=== PATIENT | female | born 1975 | race African-American/Black ===

== ENCOUNTER 2016-04-30 17:33 | Emergency (ER) | payer SELFPAY ==
[~2016-04-30] VITALS: Ht 162.6 cm; Wt 78.0 kg
[2016-04-30 17:34] VITALS: BP 131/71; PULSE 77; RESP 14; TEMP 98.2; O2SAT 98
[2016-04-30] MEDS ORDERED: VENTAER INH (20:03)
[2016-04-30] MEDS ORDERED: BENZ100 PO (20:04)
[2016-04-30] MEDS ORDERED: PRED20 PO (20:04)
[2016-04-30] MEDS ORDERED: AUGM875T PO (20:04)
--- NOTE | 2016-04-30 20:07 | PD ---
HPI Chief Complaint: Cold / Flu Symptoms Time Seen by Provider: 20:00 Travel History International Travel<30 days: No Contact w/Intl Traveler<30days: No Traveled to known affect area: No History of Present Illness HPI 40-year-old female with history of asthma presents for evaluation of cough, congestion, wheezing. Symptoms started 2 weeks ago. She also has ear pressure. Her family all have similar symptoms. She has been using over-the- counter cough and cold medications but symptoms persist. No fevers. No recent travel. No rash. No other complaints. PFSH Past Medical History Hx Anticoagulant Therapy: No Asthma: Yes Cardiovascular Problems: No Chemotherapy: No Cerebrovascular Accident: No Diabetes: No Diminished Hearing: No Respiratory: Yes (ASTHMA) ?: Not Menopausal: No : 6 Para: 6 Tubal Ligation: Yes Past Surgical History Section: Yes (X1) Gynecologic Surgery: Yes (C/SECTION X 1) Hysterectomy: No Social History Alcohol Use: No Tobacco Use: No (Denies) Substance Use: No Allergies-Medications (Allergen,Severity, Reaction): Coded Allergies: No Known Allergies (Verified , 04/30/16) Reported Meds & Prescriptions Reported Meds & Active Scripts Active Reported Ventolin Hfa 18 GM Inh (Albuterol Sulfate) 90 Mcg/Act Aer 2 Puff INH Q4-6H PRN Review of Systems Except as stated in HPI: all other systems reviewed are Neg Physical Exam Narrative GENERAL: Well-developed well-nourished female in no acute distress SKIN: Warm and dry. HEAD: Atraumatic. Normocephalic. EYES: Pupils equal and round. No scleral icterus. No injection or drainage. ENT: No nasal bleeding or discharge. Mucous membranes pink and moist. Some tenderness to palpation of the maxillary sinuses. Tympanic membranes appear normal. NECK: Trachea midline. No JVD. CARDIOVASCULAR: Regular rate and rhythm. No murmur appreciated. RESPIRATORY: No accessory muscle use. Mild wheezing. Data Data Last Documented VS Vital Signs Date Time Temp Pulse Resp B/P Pulse Ox O2 Delivery O2 Flow Rate FiO2 04/30/16 17:34 98.2 77 14 131/71 98 MDM Medical Decision Making Medical Screen Exam Complete: Yes Emergency Medical Condition: Yes Medical Record Reviewed: Yes Differential Diagnosis Sinusitis, bronchitis, asthma exacerbation, pneumonia, influenza, rhinitis, otitis media Narrative Course Examination is consistent with sinusitis and asthma. The patient is being discharged with Augmentin, Tessalon and short course of prednisone. Diagnosis Primary Impression: Sinusitis Qualified Code: J01.90 - Acute sinusitis, recurrence not specified, unspecified location Additional Impression: Asthma Qualified Code: J45.909 - Uncomplicated asthma, unspecified asthma severity Additional Instructions: Medication as prescribed. Avoid tobacco products. Continue using albuterol inhaler. Return for any emergent medical conditions. Med/Other Pt SpecificInfo: Prescription(s) given Scripts Benzonatate (Tessalon Perles)100 Mg [id number] Mg PO TID PRN (COUGH) #30 CAP Ref 0 Prov:Celina Rosario DO 04/30/16 Prednisone 20 Mg Tab20 Mg PO BID 5 Days Ref 0 Prov:Celina Rosario DO 04/30/16 Amoxicillin-Clavulanate (Augmentin)875-125 mg [id number] Mg PO BID 10 Days Ref 0 not for use in CrCl <30 ml/min. Prov:Celina Rosario DO 04/30/16 Disposition: 01 DISCHARGE HOME Condition: Stable [place] Apr 30, 2016 20:07
[2016-04-30] MEDS ORDERED: BENZONATATE 100 MG CAP PO ONE (21:00)
[2016-04-30] MEDS ORDERED: predniSONE 20 MG TAB PO ONE (21:00)
[2016-04-30] MEDS ORDERED: AMOXICILLIN/CLAVULANATE K 875 MG TAB PO ONE (21:00)
== END 2016-04-30 21:56 | disposition home or self-care (01) ==
LOC: NEPB 17:33
DX: J32.9 Chronic sinusitis, unspecified (principal); J45.909 Unspecified asthma, uncomplicated
CPT/HCPCS: 99282; J7512

== ENCOUNTER 2016-05-09 18:20 | Emergency (ER) | payer SELFPAY ==
[~2016-05-09] VITALS: Ht 162.6 cm; Wt 75.0 kg
[~2016-05-09 18:20] MED LIST: AUGM875T PO; BENZ100 PO; PRED20 PO; VENTAER INH
[2016-05-09 18:32] VITALS: BP 132/78; PULSE 88; RESP 14; TEMP 98.2; O2SAT 98
== END 2016-05-09 19:21 | disposition left against medical advice (07) ==
LOC: NED 18:20
DX: R51 Headache (principal); Z53.21 Procedure and treatment not carried out due to patient leaving prior to being seen by health care provider
CPT/HCPCS: 99281

== ENCOUNTER 2016-10-30 09:09 | Emergency (ER) | payer OTHER ==
[2016-10-30 09:11] VITALS: BP 155/89; PULSE 70; RESP 13; TEMP 98.7; O2SAT 99
--- NOTE | 2016-10-30 09:26 | PD ---
HPI Chief Complaint: Oral / Dental Pain or Problem Time Seen by Provider: 09:16 Travel History International Travel<30 days: No Contact w/Intl Traveler<30days: No Traveled to known affect area: No History of Present Illness HPI Patient comes in complaining of right-sided dental pain and possible abscesses began 2 days ago both upper and lower. Patient describes pain is achy and pressure-like in nature. Patient has been taking Tylenol with minimal relief. Pain is worse with eating or drinking anything. Denies any radiation of the pain. Denies any fevers, , difficulty swallowing, chest pain, shortness breath, or headaches. Patient states she is not seen a dentist in a long time. PFSH Past Medical History Hx Anticoagulant Therapy: No Asthma: Yes Cardiovascular Problems: No Chemotherapy: No Cerebrovascular Accident: No Diabetes: No Diminished Hearing: No Respiratory: Yes (ASTHMA) Menopausal: No : 6 Para: 6 Tubal Ligation: Yes Past Surgical History Section: Yes (X1) Gynecologic Surgery: Yes (C/SECTION X 1) Hysterectomy: No Social History Alcohol Use: No Tobacco Use: Yes Substance Use: No Allergies-Medications (Allergen,Severity, Reaction): Coded Allergies: No Known Allergies (Verified , 04/30/16) Reported Meds & Prescriptions Reported Meds & Active Scripts Active Naprosyn (Naproxen) 500 Mg Tab 500 Mg PO Q12HR PRN Clindamycin (Clindamycin HCl) 150 Mg Cap 2 Cap PO Q6H 10 Days Penicillin V Potassium 500 Mg Tab 500 Mg PO Q8H 10 Days Tessalon Perles (Benzonatate) 100 Mg Cap 200 Mg PO TID PRN Prednisone 20 Mg Tab 20 Mg PO BID 5 Days Augmentin (Amoxicillin-Clavulanate) 875-125 mg Tab 875 Mg PO BID 10 Days not for use in CrCl <30 ml/min. Reported Ventolin Hfa 18 GM Inh (Albuterol Sulfate) 90 Mcg/Act Aer 2 Puff INH Q4-6H PRN Review of Systems Except as stated in HPI: all other systems reviewed are Neg Physical Exam Narrative GENERAL: Well-developed, well nourished, in no acute distress, and non-ill appearing. SKIN: Focused skin assessment warm and dry. HEAD: Atraumatic. Normocephalic. EYES: Pupils equal and round. EOMI. No scleral icterus. No injection or drainage. ENT: No nasal bleeding or discharge. Mucous membranes pink and moist. Poor dentition with no visible or palpable abscess. Floor the mouth, submandibular, and submental are all soft palpation. Patient is swallowing saliva. NECK: Trachea midline. No cervical lymphadenopathy. Supple. No nuclear rigidity. RESPIRATORY: No accessory muscle use. No respiratory distress. MUSCULOSKELETAL: No obvious deformities. No clubbing. No cyanosis. No edema. Full range of motion. NEUROLOGICAL: Awake and alert. No obvious cranial nerve deficits. Motor grossly within normal limits. Normal speech. PSYCHIATRIC: Appropriate mood and affect; insight and judgment normal. Data Data Last Documented VS Vital Signs Date Time Temp Pulse Resp B/P (MAP) Pulse Ox O2 Delivery O2 Flow Rate FiO2 10/30/16 09:33 10/30/16 09:11 98.7 70 13 99 MDM Medical Decision Making Medical Screen Exam Complete: Yes Emergency Medical Condition: Yes Differential Diagnosis Dental abscess, dental infection, dentalgia, other Narrative Course Patient requesting free antibiotics states she does not have money to pay for different antibiotics. Explained to the patient that the free antibiotics do not always work on dental infections. Patient verbalizes understanding of this , but is wanting to try them first anyway. I explained to the patient will give her prescription for the free along with prescription for the antibiotic that typically works better with dental infections in case they free and does not work. Patient is agreeable to this. The patient presented with dental pain. There is no fever. There is no significant facial swelling or evidence of cellulitis. There is poor dentition but no evidence of drainable abscess at this time. There is no evidence of significant deep or invading abscess at this time. The patient will be placed on antibiotics and pain medication. The patient was instructed to follow up with a dentist. The patient was given the dental referral sheet. Warnings were discussed with the patient regarding worsening of infection. The patient is to return if pain worsens, develops progressive swelling or facial redness or fever. The patient agrees with plan. Patient in no obvious distress upon re-evaluation. Patient was asked if they wanted to speak to my attending, which the patient did not wish to do at this time. Any questions/concerns in reference to patient diagnosis/condition discussed and clarified prior to patient's discharge. Reinforced sheer importance of close follow up with patient's primary physician or primary care clinic and dentist. Instructed patient to return to ED immediately, if symptoms return/worsen. Patient showed understanding of above instructions. Further instructions and recommendations were detailed in discharge paperwork. Patient ambulated without difficulty out of ED at discharge. Diagnosis Primary Impression: Infected dental caries Patient Instructions: Dental Abscess (GEN), Dental Caries (DC), General Instructions Additional Instructions: Follow-up with your primary care physician and dentist as soon as possible. Rinse mouth with warm salt water gargles. Take all medication as prescribed. Pen-Vee K is free at [facility]. If no improvement within 48 hours please obtain the clindamycin prescription and stopped taking the Pen-Vee K. Return to the emergency department if symptoms get worse. Med/Other Pt SpecificInfo: Prescription(s) given Scripts Naproxen (Naprosyn) 500 Mg Tab 500 MG PO Q12HR Y for PAIN SCALE 1 TO 10, #14 TAB 0 Refills Prov: Felisha Contreras MD 10/30/16 Clindamycin (Clindamycin) 150 Mg Cap 2 CAP PO Q6H for Infection for 10 Days, CAP 0 Refills Prov: Felisha Contreras MD 10/30/16 Penicillin V Potassium (Penicillin V Potassium) 500 Mg Tab 500 MG PO Q8H for Infection for 10 Days, #30 TAB 0 Refills Prov: Felisha Contreras MD 10/30/16 Disposition: 01 DISCHARGE HOME Condition: Stable Manny Murry Oct 30, 2016 09:26
[2016-10-30] MEDS ORDERED: CLIN1CAP5 PO (09:27)
[2016-10-30] MEDS ORDERED: PENI500T PO (09:27)
[2016-10-30] MEDS ORDERED: NAPR500 PO (09:27)
== END 2016-10-30 09:30 | disposition home or self-care (01) ==
LOC: NEPK 09:09
DX: K02.9 Dental caries, unspecified (principal); J45.909 Unspecified asthma, uncomplicated; Z72.0 Tobacco use
CPT/HCPCS: 99284

== ENCOUNTER 2016-12-01 18:32 | Emergency (ER) | payer OTHER ==
[~2016-12-01] VITALS: Ht 162.6 cm; Wt 79.5 kg
[~2016-12-01 18:32] MED LIST changes: +CLIN1CAP5 PO; +NAPR500 PO; +PENI500T PO
[2016-12-01 18:34] VITALS: BP 134/75; PULSE 74; RESP 15; TEMP 98.5; O2SAT 98
== END 2016-12-01 20:54 | disposition left against medical advice (07) ==
LOC: NED 18:32
DX: R10.9 Unspecified abdominal pain (principal); Z53.21 Procedure and treatment not carried out due to patient leaving prior to being seen by health care provider
CPT/HCPCS: 99281

== ENCOUNTER 2017-03-29 11:52 | Emergency (ER) | payer OTHER ==
[~2017-03-29 11:52] MED LIST changes: +CLIN150C14 PO; -CLIN1CAP5 PO
[2017-03-29 11:53] VITALS: BP 142/80; PULSE 93; RESP 14; TEMP 98.9; O2SAT 99
[2017-03-29] MEDS ORDERED: TRAM50TA PO (12:50)
[2017-03-29] MEDS ORDERED: AUGM875T3 PO (12:50)
--- NOTE | 2017-03-29 13:12 | PD ---
HPI Chief Complaint: Facial Pain or Swelling Time Seen by Provider: 12:25 Travel History International Travel<30 days: No Contact w/Intl Traveler<30days: No Traveled to known affect area: No History of Present Illness HPI The patient was seen and examined in the presence of the nurse. This patient complains of facial swelling and dental pain. Duration 3 days. Severity is moderate. No alleviating factors. Denies fever PFSH Past Medical History Hx Anticoagulant Therapy: No Asthma: Yes Cardiovascular Problems: No Chemotherapy: No Cerebrovascular Accident: No Diabetes: No Diminished Hearing: No Respiratory: Yes (ASTHMA) Immunizations Current: Yes Influenza Vaccination: No ?: Not LMP: 3 WEEKS AGO Menopausal: No : 6 Para: 6 Tubal Ligation: Yes Past Surgical History Section: Yes (X1) Gynecologic Surgery: Yes (C/SECTION X 1) Hysterectomy: No Social History Alcohol Use: No Tobacco Use: Yes Substance Use: No Allergies-Medications (Allergen,Severity, Reaction): Coded Allergies: No Known Allergies (Verified Adverse Reaction, Unknown, 03/29/17) Reported Meds & Prescriptions Reported Meds & Active Scripts Active Tramadol (Tramadol HCl) 50 Mg Tab 50 Mg PO Q6H PRN Augmentin (Amoxicillin-Clavulanate) 875-125 Mg Tab 1 Tab PO BID Reported Ventolin Hfa 18 GM Inh (Albuterol Sulfate) 90 Mcg/Act Aer 2 Puff INH Q4-6H PRN Review of Systems General / Constitutional: No: Fever HENT: No: Rhinitis Cardiovascular: No: Chest Pain or Discomfort Respiratory: No: Cough Gastrointestinal: No: Vomiting Physical Exam Narrative NECK: Symmetrical appearance, midline trachea. No mass or crepitus. Thyroid without enlargement, tenderness, or mass. SKIN: Focused skin assessment reveals no rash or ulcers. Skin is warm and dry. Palpation shows no induration or nodules. Oral cavity: Tooth #6 partially rotted out. It's very tender. The surrounding gingiva looks pink and healthy. No obvious abscess visible Face: There is some tenderness and swelling in the right cheek and upper lip area but no abscess or fluctuance or drainage. Data Data Last Documented VS Vital Signs Date Time Temp Pulse Resp B/P (MAP) Pulse Ox O2 Delivery O2 Flow Rate FiO2 03/29/17 11:53 98.9 93 14 142/80 (100) 99 MDM Medical Decision Making Medical Screen Exam Complete: Yes Emergency Medical Condition: Yes Medical Record Reviewed: Yes Differential Diagnosis Dental abscess, gingivitis, facial infection Narrative Course I have reviewed the patient's electronic medical record. This patient has dental infection with some facial swelling. I don't see anything to drain or incise Needs to follow up with dentist. I prescribed a course of Augmentin and some tramadol Gave her dose of each here Diagnosis Primary Impression: Dental infection Additional Impression: Facial swelling Additional Instructions: The patient was advised to follow up with their dentist . The patient was warned about potential sedation for the medications they will receive on prescription. Med/Other Pt SpecificInfo: Prescription(s) given Scripts Tramadol (Tramadol) 50 Mg Tab 50 MG PO Q6H Y for PAIN, #20 TAB 0 Refills Prov: Sonido Moreno MD 03/29/17 Amoxicillin-Clavulanate (Augmentin) 875-125 Mg Tab 1 TAB PO BID for Infection, #14 TAB 0 Refills Prov: Sonido Moreno MD 03/29/17 Disposition: 01 DISCHARGE HOME Condition: Stable Sonido Moreno MD Mar 29, 2017 13:12
[2017-03-29] MEDS ORDERED: ACETAMINOPHEN/CODEINE 300 MG/30 MG TAB PO ONE (13:45)
[2017-03-29] MEDS ORDERED: AMOXICILLIN/CLAVULANATE K 875 MG TAB PO ONE (13:45)
[2017-03-29] MEDS ORDERED: TYLETAB34 PO (13:54)
== END 2017-03-29 14:01 | disposition home or self-care (01) ==
LOC: NEPD 11:52
DX: K04.7 Periapical abscess without sinus (principal); R22.0 Localized swelling, mass and lump, head; J45.909 Unspecified asthma, uncomplicated; Z72.0 Tobacco use
CPT/HCPCS: 99283

== ENCOUNTER 2017-04-07 09:37 | Emergency (ER) | payer OTHER ==
[~2017-04-07] VITALS: Ht 162.6 cm; Wt 84.5 kg
[~2017-04-07 09:37] MED LIST changes: -AUGM875T PO; +AUGM875T3 PO; -BENZ100 PO; -CLIN150C14 PO; -NAPR500 PO; -PENI500T PO; -PRED20 PO; +TRAM50TA PO; +TYLETAB34 PO
[2017-04-07 09:42] VITALS: BP 128/72; PULSE 81; RESP 18; TEMP 99; O2SAT 98
[2017-04-07] MEDS ORDERED: CEPH-460 PO (09:55)
[2017-04-07] MEDS ORDERED: BACT800T5 PO (09:55)
[2017-04-07] MEDS ORDERED: IBUP-232 PO (09:56)
--- NOTE | 2017-04-07 09:57 | PD ---
HPI Chief Complaint: Skin Problem Time Seen by Provider: 09:47 Travel History International Travel<30 days: No Contact w/Intl Traveler<30days: No Traveled to known affect area: No History of Present Illness HPI 41-year-old female presents to the emergency department for evaluation of an abscess behind her right ear. Patient states she was here on March 29, 2017 with facial swelling. She was diagnosed with dental infection was given Augmentin. She has finished the Augmentin. Once the Augmentin was finished, she stated the swelling came back and she noticed the abscess behind the right ear. Patient reports no chronic medical problems and takes no prescribed medications. She denies reporting history of tubal ligation. Reports pain is 10/10, throbbing, without radiation. No exacerbating or alleviating factors. Moderate severity. PFSH Past Medical History Hx Anticoagulant Therapy: No Asthma: Yes Cardiovascular Problems: No Chemotherapy: No Cerebrovascular Accident: No Diabetes: No Diminished Hearing: No Respiratory: Yes (ASTHMA) Immunizations Current: Yes Menopausal: No : 6 Para: 6 Tubal Ligation: Yes Past Surgical History Section: Yes (X1) Gynecologic Surgery: Yes (C/SECTION X 1) Hysterectomy: No Social History Alcohol Use: No Tobacco Use: Yes Substance Use: No Allergies-Medications (Allergen,Severity, Reaction): Coded Allergies: No Known Allergies (Verified Adverse Reaction, Unknown, 04/07/17) Reported Meds & Prescriptions Reported Meds & Active Scripts Active Ibuprofen 600 Mg Tab 600 Mg PO TID PRN Keflex (Cephalexin) 500 Mg Cap 500 Mg PO Q6H 10 Days Bactrim DS (Sulfamethoxazole-Trimethoprim) 800-160 Mg Tab 1 Tab PO BID Reported Ventolin Hfa 18 GM Inh (Albuterol Sulfate) 90 Mcg/Act Aer 2 Puff INH Q4-6H PRN Review of Systems Except as stated in HPI: all other systems reviewed are Neg Physical Exam Narrative GENERAL: Well-nourished, well-developed female patient, ambulatory. Afebrile. SKIN: Focused skin assessment warm/dry. Patient has 2 cm fluctuant abscess behind the right ear with mild erythema noted. HEAD: Normocephalic. Atraumatic. EYES: No scleral icterus. No injection or drainage. NECK: Supple, trachea midline. No JVD or lymphadenopathy. CARDIOVASCULAR: Regular rate and rhythm without murmurs, gallops, or rubs. RESPIRATORY: Breath sounds equal bilaterally. No accessory muscle use. Lungs sounds are clear to auscultation. GASTROINTESTINAL: Abdomen soft, non-tender, nondistended. MUSCULOSKELETAL: No cyanosis, or edema. BACK: Nontender without obvious deformity. No CVA tenderness. Data Data Last Documented VS Vital Signs Date Time Temp Pulse Resp B/P (MAP) Pulse Ox O2 Delivery O2 Flow Rate FiO2 04/07/17 09:42 99.0 81 18 128/72 (90) 98 Orders Orders Wound Culture And Gram Stain (04/07/17 09:51) Lidocaine 1% Inj (50 Ml) (Xylocaine 1% I (04/07/17 10:00) Lidocaine 1% Inj (Xylocaine 1% Inj) (04/07/17 10:15) [facility] Medical Decision Making Medical Screen Exam Complete: Yes Emergency Medical Condition: Yes Medical Record Reviewed: Yes Differential Diagnosis Abscess versus sebaceous cyst versus cellulitis Narrative Course 41-year-old female presents to the emergency department for evaluation of abscess behind her right ear. She was recently Augmentin for dental infection, but is not currently taking it. She gives verbal consent for incision and drainage. Patient will be discharged with a prescription for ibuprofen, Bactrim , Keflex. She is instructed to follow-up with a primary care physician. She is return here for any acute worsening of symptoms. The patient was discharged in stable condition with instructions, including return instructions and follow up instructions. Procedures Procedure Narrative INCISION AND DRAINAGE OF ABSCESS: The area was prepped and was sterilely draped. A subcutaneous wheal of 1% Xylocaine with a total number 1 mL was used to anesthetize the area. The area was properly anesthetized. A number 11 scalpel was used to make a 1 -cm incision across the area of the abscess. Cultures were obtained. The abscess was drained an irrigated with normal saline. Sterile dressing applied. Diagnosis Primary Impression: Abscess Referrals: Primary Care Physician 2 days Patient Instructions: Abscess (ED), Abscess Incision and Drainage (DC), General Instructions Departure Forms: Tests/Procedures, Work Release Enter return to work date: Apr 09, 2017 Additional Instructions: Take antibiotics as directed until gone. Bactrim is free at [facility]. Keflex is $4 at [facility]. Clean twice daily with soap and water and apply [id number] antibiotic ointment. Keep clean and dry. Take ibuprofen as instructed as needed with food for pain. Follow-up with your primary care physician. Return to the emergency department for any acute worsening of symptoms. Med/Other Pt SpecificInfo: Prescription(s) given Scripts Ibuprofen (Ibuprofen) 600 Mg Tab 600 MG PO TID Y for PAIN SCALE 1 TO 10, #21 TAB 0 Refills Prov: Rubina Booker 04/07/17 Cephalexin (Keflex) 500 Mg Cap 500 MG PO Q6H for Infection for 10 Days, #40 CAP 0 Refills Prov: Rubina Booker 04/07/17 Sulfamethoxazole-Trimethoprim (Bactrim DS) 800-160 Mg Tab 1 TAB PO BID for Infection, #20 TAB 0 Refills Prov: Rubina Booker 04/07/17 Disposition: 01 DISCHARGE HOME Condition: Stable Rubina Booker Apr 07, 2017 09:57
[2017-04-07] MEDS ORDERED: LIDOCAINE HCL 1% 50 ML VIAL INFIL ONE (10:00)
[2017-04-07] MEDS ORDERED: LIDOCAINE HCL 1% 20 ML VIAL INFIL ONE (10:15)
== END 2017-04-07 10:33 | disposition home or self-care (01) ==
LOC: NEPD 09:37
DX: L02.811 Cutaneous abscess of head [any part, except face] (principal); J45.909 Unspecified asthma, uncomplicated; B96.89 Other specified bacterial agents as the cause of diseases classified elsewhere; Z72.0 Tobacco use
CPT/HCPCS: 10060; 86403; 87070; 87185

== ENCOUNTER 2017-06-17 21:08 | Emergency (ER) | payer OTHER ==
[~2017-06-17] VITALS: Ht 162.6 cm; Wt 82.0 kg
[~2017-06-17 21:08] MED LIST changes: -AUGM875T3 PO; +BACT800T5 PO; +CEPH-460 PO; +IBUP-232 PO; -TRAM50TA PO; -TYLETAB34 PO
[2017-06-17 21:19] VITALS: BP 115/70; PULSE 81; RESP 18; TEMP 98.2; O2SAT 100
--- NOTE | 2017-06-17 21:58 | PD ---
HPI Chief Complaint: Chest Pain Time Seen by Provider: 21:53 Travel History International Travel<30 days: No Contact w/Intl Traveler<30days: No Traveled to known affect area: No History of Present Illness HPI 41-year-old female presents to the emergency department for complaint of exacerbation of asthma and chest pain since exposure to mold in her apartment. Patient states her landlord has had the mold removed but she has used her albuterol inhaler without symptom relief. Patient states she may have had a fever. Patient denies productive cough. Patient states her chest feels raw when she takes a deep breath or has a coughing spell. Patient denies any history of hypertension dyslipidemia tobaccoism or diabetes. Does not report any family history of premature onset heart disease. Patient rates her discomfort as moderate. Patient requests something for pain relief. Patient states she has taken leftover antibiotic from a prescription for previous dental infection 4 doses without relief. Patient denies other concerns or complaints. No sinus pressure drainage no earache no neck pain or stiffness no abdominal pain no nausea no vomiting no diarrhea no flank pain no dysuria. Patient denies . Patient status post tubal ligation. [facility] Past Medical History Narrative Medical Asthma tubal ligation no tobacco use; nursing notes reviewed Hx Anticoagulant Therapy: No Asthma: Yes Cardiovascular Problems: No Chemotherapy: No Cerebrovascular Accident: No Diabetes: No Diminished Hearing: No Respiratory: Yes (ASTHMA) Immunizations Current: Yes ?: Unknown Menopausal: No : 6 Para: 6 Tubal Ligation: Yes Past Surgical History Section: Yes (X1) Gynecologic Surgery: Yes (C/SECTION X 1) Hysterectomy: No Social History Alcohol Use: No Tobacco Use: Yes Substance Use: No Allergies-Medications (Allergen,Severity, Reaction): Coded Allergies: No Known Allergies (Verified Adverse Reaction, Unknown, 06/17/17) Reported Meds & Prescriptions Reported Meds & Active Scripts Active Ibuprofen 600 Mg Tab 600 Mg PO TID PRN Keflex (Cephalexin) 500 Mg Cap 500 Mg PO Q6H 10 Days Bactrim DS (Sulfamethoxazole-Trimethoprim) 800-160 Mg Tab 1 Tab PO BID Reported Ventolin Hfa 18 GM Inh (Albuterol Sulfate) 90 Mcg/Act Aer 2 Puff INH Q4-6H PRN Review of Systems Except as stated in HPI: all other systems reviewed are Neg General / Constitutional: No: Fever HENT: Positive: Congestion Cardiovascular: Positive: Chest Pain or Discomfort (burning with cough) Respiratory: Positive: Cough, Shortness of Breath, Wheezing Gastrointestinal: Positive: Nausea, No: Abdominal Pain Genitourinary: No: Dysuria Musculoskeletal: No: Myalgias, Arthralgias Skin: No Rash Neurologic: No: Weakness Psychiatric: Positive: Anxiety Hematologic/Lymphatic: No: Easy Bruising Physical Exam Narrative GENERAL: Well-developed well-nourished female no acute distress no respiratory distress; triage vital signs values within normal range SKIN: Warm and dry. HEAD: Normocephalic. EYES: No scleral icterus. No injection or drainage. ENT: Mucous membrane is moist airways patent. NECK: Supple, trachea midline. No JVD or lymphadenopathy. CARDIOVASCULAR: Regular rate and rhythm without murmurs, gallops, or rubs. RESPIRATORY: Breath sounds equal bilaterally. No accessory muscle use. GASTROINTESTINAL: Abdomen soft, non-tender, nondistended. MUSCULOSKELETAL: No cyanosis, or edema. BACK: Nontender without obvious deformity. No CVA tenderness. Data Data Last Documented VS Vital Signs Date Time Temp Pulse Resp B/P (MAP) Pulse Ox O2 Delivery O2 Flow Rate FiO2 06/17/17 23:17 98.5 75 19 121/66 (84) 99 Room Air 06/17/17 22:01 21 Orders Orders Electrocardiogram (06/17/17 21:23) Complete Blood Count With Diff (06/17/17 21:23) Basic Metabolic Panel (Bmp) (06/17/17 21:23) Ckmb (Isoenzyme) Profile (06/17/17 21:23) Troponin I (06/17/17 21:23) Iv Access Insert/Monitor (06/17/17 21:23) Ecg Monitoring (06/17/17 21:23) Oxygen Administration (06/17/17 21:23) Oximetry (06/17/17 21:23) Chest, Pa & Lat (06/17/17 21:23) Albuterol-Ipratropium Neb (Duoneb Neb) (06/17/17 22:00) Ed Urine Pregnancytest Poc (06/17/17 21:53) Prednisone (Deltasone) (06/17/17 22:00) CKMB (06/17/17 21:35) CKMB% (06/17/17 21:35) Ed Discharge Order (06/17/17 23:26) Labs Laboratory Tests Test 06/17/17 21:35 White Blood Count 10.1 TH/MM3 Red Blood Count 3.63 MIL/MM3 Hemoglobin 9.6 GM/DL Hematocrit 29.4 % Mean Corpuscular Volume 81.0 FL Mean Corpuscular Hemoglobin 26.3 PG Mean Corpuscular Hemoglobin Concent 32.5 % Red Cell Distribution Width 16.8 % Platelet Count 286 TH/MM3 Mean Platelet Volume 8.7 FL Neutrophils (%) (Auto) 46.2 % Lymphocytes (%) (Auto) 43.4 % Monocytes (%) (Auto) 7.5 % Eosinophils (%) (Auto) 2.2 % Basophils (%) (Auto) 0.7 % Neutrophils # (Auto) 4.7 TH/MM3 Lymphocytes # (Auto) 4.4 TH/MM3 Monocytes # (Auto) 0.8 TH/MM3 Eosinophils # (Auto) 0.2 TH/MM3 Basophils # (Auto) 0.1 TH/MM3 CBC Comment DIFF FINAL Differential Comment Blood Urea Nitrogen 12 MG/DL Creatinine 0.90 MG/DL Random Glucose 99 MG/DL Calcium Level 8.7 MG/DL Sodium Level 139 MEQ/L Potassium Level 3.6 MEQ/L Chloride Level 108 MEQ/L Carbon Dioxide Level 21.8 MEQ/L Anion Gap 9 MEQ/L Estimat Glomerular Filtration Rate 84 ML/MIN Total Creatine Kinase 145 U/L Creatine Kinase MB LESS THAN 0.5 NG/ML Troponin I LESS THAN 0.02 NG/ML MDM Medical Decision Making Medical Screen Exam Complete: Yes Emergency Medical Condition: Yes Medical Record Reviewed: Yes Interpretation(s) EKG: Normal sinus rhythm rate [address] elevation injury pattern or ectopy noted Troponin I less than 0.02, not elevated POC hCG: Negative Last Impressions Chest X-Ray 06/17/172122 Signed Impressions: Service Date/Time: June 22:12 - CONCLUSION: No acute disease. Jose F Sarkar MD Vital Signs Date Time Temp Pulse Resp B/P (MAP) Pulse Ox O2 Delivery O2 Flow Rate FiO2 06/17/17 22:01 100 21 06/17/17 21:19 98.2 81 18 115/70 (85) 100 Differential Diagnosis Seasonal/environmental rhinosinusitis, asthma, bronchitis, pneumonia, atypical chest pain Narrative Course Patient placed on training associate with continuous pulse oximetry IV access obtained specimens collected and sent for resulting EKG and imaging studies ordered; patient administered 1 dose prednisone 50 mg by mouth along with DuoNeb updraft 1 Patient clinically improved after DuoNeb updraft 1 Chest x-ray reveals no acute process Patient stable for outpatient management and follow-up with her primary care provider Diagnosis Primary Impression: Bronchitis Additional Impressions: Allergic rhinosinusitis Anemia Referrals: Primary Care Physician call for appointment Patient Instructions: General Instructions Departure Forms: Tests/Procedures, Work Release Special Instructions: no work x 1 day Additional Instructions: Increase fluid hydration Take medications as prescribed Follow-up with your primary care provider No work 1 day May take acetaminophen/Tylenol every 4 hours as needed for fever 100.4F or greater May use [id number] Flonase nasal spray per package directions as tolerated Do not take nonsteroidal anti-inflammatory medication such as Advil/ibuprofen/ Motrin/Aleve/naproxen/Naprosyn while on steroid Medrol Dosepak taper Return to the emergency department for any concerns or change in condition Med/Other Pt SpecificInfo: Prescription(s) given Scripts Azithromycin (Zithromax Tri-Lm) 500 Mg Dspk 500 MG PO DAILY for Infection, #1 DSPK 0 Refills Prov: Kimberly Krishnan MD 06/17/17 Methylprednisolone Dosepak (Medrol Dosepak) 4 Mg Dspk 4 MG PO DIRECTED, #1 DSPK 0 Refills Per Pharmacist direction Prov: Kimberly Krishnan MD 06/17/17 Ipratropium-Albuterol Inh (Combivent Respimat Inh) 20-100 Fci/Act Aero 1 PUFF INH Q6HR for Asthma Management, #1 INHALER 0 Refills Prov: Kimberly Krishnan MD 06/17/17 Disposition: 01 DISCHARGE HOME Condition: Stable Kimberly Krishnan MD June 17, 2017 21:58
[2017-06-17] MEDS ORDERED: RESP: ALBUTEROL 2.5 MG/IPRATROPIUM 0.5 MG NEB (SCH) NEB ONE (22:00)
[2017-06-17] MEDS ORDERED: predniSONE 50 MG TAB PO ONE (22:00)
[2017-06-17 22:01] VITALS: O2SAT 100
[2017-06-17 22:09] LABS: AUTOMATED NEUTROPHIL # 4.7 TH/MM3 (1.8-7.7); BASOPHIL # 0.1 TH/MM3 (0-0.2); BASOPHIL % 0.7 % (0.0-2.0); EOSINOPHIL # 0.2 TH/MM3 (0-0.4); EOSINOPHIL % 2.2 % (0.0-4.0); HEMATOCRIT 29.4 % (35.0-46.0); HEMOGLOBIN 9.6 GM/DL (11.6-15.3); LYMPH % 43.4 % (9.0-44.0); LYMPHOCYTE # 4.4 TH/MM3 (1.0-4.8); MEAN CORPUSCULAR HEMOGLOBIN 26.3 PG (27.0-34.0); MEAN CORPUSCULAR HGB CONC 32.5 % (32.0-36.0); MEAN PLATELET VOLUME 8.7 FL (7.0-11.0); MONO % 7.5 % (0.0-8.0); MONOCYTE # 0.8 TH/MM3 (0-0.9); NEUT % 46.2 % (16.0-70.0); PLATELET COUNT 286 TH/MM3 (150-450); RED BLOOD COUNT 3.63 MIL/MM3 (4.00-5.30); RED CELL DISTRIBUTION WIDTH 16.8 % (11.6-17.2); WHITE BLOOD COUNT 10.1 TH/MM3 (4.0-11.0)
--- NOTE | 2017-06-17 22:17 | RADRPT ---
EXAM DATE/TIME: 06/17/2017 22:12 [facility] COMPARISON: CHEST PA & LAT, March 22, 2015, 16:57. INDICATIONS : Chest pain. MEDICAL HISTORY : Asthma SURGICAL HISTORY : None. ENCOUNTER: Initial ACUITY: 1 day PAIN SCORE: 9/10 LOCATION: Bilateral chest FINDINGS: PA and lateral views of the chest demonstrate the lungs to be symmetrically aerated without evidence of mass, infiltrate or effusion. The cardiomediastinal contours are unremarkable. Osseous structure s are intact. CONCLUSION: No acute disease. Jose F Sarkar MD on June 17, 2017 at 22:14 Board Certified Radiologist. This report was verified electronically.
[2017-06-17 22:24] LABS: BICARBONATE 21.8 MEQ/L (21.0-32.0); BLOOD UREA NITROGEN 12 MG/DL (7-18); CALCIUM 8.7 MG/DL (8.5-10.1); CHLORIDE 108 MEQ/L (98-107); GLOMERULAR FILTRATION RATE 84 ML/MIN (>89); GLUCOSE,RANDOM 99 MG/DL (74-106); SODIUM (NA) 139 MEQ/L (136-145)
[2017-06-17 22:29] LABS: TROPONIN I LESS THAN 0.02 NG/ML (0.02-0.05)
[2017-06-17 23:17] VITALS: BP 121/66; PULSE 75; RESP 19; TEMP 98.5; O2SAT 99
[2017-06-17] MEDS ORDERED: MEDR4PAK PO (23:30)
[2017-06-17] MEDS ORDERED: ZITHTAB2 PO (23:30)
[2017-06-17] MEDS ORDERED: IPRAAER INH (23:30)
--- NOTE | 2017-06-19 08:34 | EKG ---
Date Performed: 06/17/2017 Time Performed: 21:30:45 PTAGE: 41 years EKG: Sinus rhythm NORMAL ECG PREVIOUS TRACING : 09/03/2014 23.39 DOCTOR: Emerald Turk Interpretating Date/Time 06/19/2017 08:32:02
== END 2017-06-18 02:57 | disposition home or self-care (01) ==
LOC: NEPC 21:08
DX: J40 Bronchitis, not specified as acute or chronic (principal); J30.9 Allergic rhinitis, unspecified; D64.9 Anemia, unspecified; J45.901 Unspecified asthma with (acute) exacerbation; Z72.0 Tobacco use; Z79.51 Long term (current) use of inhaled steroids
CPT/HCPCS: 71046; 80048; 82550; 82552; 84484; 84703; 85025; 93005; 94664; 99285; J7512

== ENCOUNTER 2017-08-02 12:51 | Emergency (ER) | payer OTHER ==
[~2017-08-02] VITALS: Ht 162.6 cm; Wt 80.0 kg
[~2017-08-02 12:51] MED LIST changes: +IPRAAER INH; +MEDR4PAK PO; +ZITHTAB2 PO
[2017-08-02 13:01] VITALS: BP 117/69; PULSE 70; RESP 20; TEMP 98.7; O2SAT 100
== END 2017-08-02 17:40 | disposition left against medical advice (07) ==
LOC: NETRI 12:51
DX: R06.02 Shortness of breath (principal)
CPT/HCPCS: 99281